=== PATIENT | male | born 1990 | race American Indian/Alaskan Native ===

== ENCOUNTER 2017-12-22 21:05 | Emergency (ER) | payer OTHER ==
[2017-12-22 21:17] VITALS: BP 136/87
== END 2017-12-23 03:40 | disposition left against medical advice (07) ==
LOC: ED 21:05
DX: Z04.1 Encounter for examination and observation following transport accident (principal); Z53.21 Procedure and treatment not carried out due to patient leaving prior to being seen by health care provider; V89.2XXA Person injured in unspecified motor-vehicle accident, traffic, initial encounter; Y93.89 Activity, other specified; Y99.8 Other external cause status; Y92.410 Unspecified street and highway as the place of occurrence of the external cause

== ENCOUNTER 2017-12-29 09:25 | Emergency (ER) | payer SELFPAY ==
[2017-12-29 09:55] VITALS: BP 127/81
[2017-12-29] MEDS ORDERED: TETRACAINE 0.5% OU PRN (11:35)
[2017-12-29] MEDS ORDERED: FUL-GLO OP ONE (11:35)
--- NOTE | 2017-12-29 11:57 | Emergency Department Report ---
[facility] Chief Complaint: Eye Problems Stated Complaint: RIGHT EYE PAIN Time Seen by Provider: 12/29/17 11:35 Duration: 2 Days Side: Right Severity: mild Symptoms: Yes Eye Itching, Yes Eye Redness, No Eye Pain, No Mucous Drainage, No Purulent Drainage, No Blurred Vision, No Preceding URI, No H/O Allergic Rhinitis , No Contact Lens Use, No Trauma, No Fever, No Headache Other History: This is a 27-year-old male nontoxic, well nourished in appearance , no acute signs of distress presents to the ED with c/o of right eye itching and redness x2 days. Patient stated has crusting also this morning. Patient denies any eye trauma. Patient denies any blurry vision or visual changes. Patient denies any headache, nausea, vomiting, chest pain, shortness of rbeathe , fever, chills, numbness or tingling. Patient denies any allergies or PMH. ED Review of Systems ROS: Stated complaint: RIGHT EYE PAIN Other details as noted in HPI Constitutional: denies: chills, fever Eyes: eye pain. denies: eye discharge, vision change ENT: denies: ear pain, throat pain Respiratory: denies: cough, shortness of breath, wheezing Cardiovascular: denies: chest pain, palpitations Endocrine: no symptoms reported Gastrointestinal: denies: abdominal pain, nausea, diarrhea Genitourinary: denies: urgency, dysuria Musculoskeletal: denies: back pain, joint swelling, arthralgia Skin: denies: rash, lesions Neurological: denies: headache, weakness, paresthesias Psychiatric: denies: anxiety, depression Hematological/Lymphatic: denies: easy bleeding, easy bruising ED Past Medical Hx - Past Medical History Hx Asthma: Yes - Surgical History Past Surgical History?: No - Social History Smoking Status: Never Smoker Substance Use Type: None - Medications Home Medications: Home Medications Medication Instructions Recorded Confirmed Last Taken Type Ciprofloxacin 0.3% (Nf) 2 drops OD TID 7 Days #1 drops 12/29/17 Unknown Rx [Ciprofloxacin OPTH] [facility] Exam - Exam General: Vital signs noted. No distress. Alert and acting appropriately. GENERAL: The patient is a well-developed, well-nourished in no apparent distress. Patient is alert and acting appropriately for age. Alert and oriented 3, no apparent distress, normal gait, atraumatic. HEENT: Head is normocephalic and atraumatic. PERRL, Extraocular muscles are intact. Pupils are equal, round, and reactive to light and accommodation. Right eye erythema with eyelid crusting and itching. Nares appeared normal. Mouth is well hydrated and without lesions. Mucous membranes are moist. Posterior pharynx clear of any exudate or lesions. Mouth is well hydrated and without lesions. Tonsils not erythematous or swollen. Uvula midline. Tongue elevated. Mucous members are moist. Posterior pharynx clear, no exudate or lesions. Patent airways. NECK: Supple. No carotid bruits. No lymphadenopathy or thyromegaly.nontender. No meningitic signs are noted. LUNGS: Clear to auscultation. Non labor breathing. No intercostal retractions. Symmetrical with respiration, no wheezing, no rales, or crackles. HEART: Regular rate and rhythm without murmur, rubs or gallops. No reproducible. S1, S2 present, regular rate and rhythm without murmur, no rubs, no gallops. ABDOMEN: Soft, nontender, and nondistended. Positive bowel sounds. No hepatosplenomegaly was noted. No guarding or rebound tenderness, negative epigastric bruit. Negative psoas sign, negative bradshaw sign, negative McBurneys sign EXTREMITIES: Without any cyanosis, clubbing, rash, lesions or edema. Peripheral pulses intact. Capillary refill less than 2 seconds. Full range of motion bilaterally. NEUROLOGIC: Cranial nerves II through XII are grossly intact. Alert and oriented x 3. Normal gait. Symmetrical strength and sensation. Reflexes 2+ throughout. Cerebellar testing normal. GCS score of 15. PSYCHIATRIC: Normal affect with no suicidal or homicidal ideations. Eye Exam: Neither Injection, Neither Chemosis, Neither Abnormal Pupil, Neither EOMI, Neither Eye Foreign Body, Neither Lid Foreign Body, Neither Mucous Discharge, Neither Purulent Discharge, Neither Fluorescein Uptake, Neither Fluorescein Uptake (slit lamp), Neither Cell/Flare (slit lamp), Neither Corneal Edema, Neither Photophobia HEENT: No Nasal Congestion, No Pharyngeal Erythema Remainder of HEENT: Normal Lungs: Yes Clear Lung Sounds, Yes Good Air Exchange, No Wheezes, No Stridor, No Cough, No Nasal Flaring, No Retractions, No Use of Accessory Muscles Exam: Under Marquez lamp, I used fluorescein and tetracaine to examine cornea for corneal abrasion or foreign body, negative for coronary abrasion or foreign body noted upon exam. Tonopen-12 right eye. Visual acuity: right-20/70, left- 20-70 ED Course Vital Signs 12/29/17 09:53 Temperature 98.6 F Pulse Rate 81 Respiratory 20 Rate Blood Pressure 127/81 O2 Sat by Pulse 98 Oximetry - Reevaluation(s) Reevaluation #1: 12/29/17 11:56 Patient is speaking in full sentences with no signs of distress noted. Critical care attestation.: If time is entered above; I have spent that time in minutes in the direct care of this critically ill patient, excluding procedure time. ED Disposition Clinical Impression: Conjunctivitis, right eye Qualifiers: Conjunctivitis type: unspecified Qualified Code(s): H10.9 - Unspecified conjunctivitis Disposition: - TO HOME OR SELFCARE Is pt being admited?: No Does the pt Need Aspirin: No Condition: Stable Instructions: Conjunctivitis (ED), Ciprofloxacin (Into the eye) Additional Instructions: Follow-up with a freelance web designer care doctor in 3-5 days or if symptoms worsen and continue return to emergency room as soon as possible. Prescriptions: Ciprofloxacin 0.3% (Nf) [Ciprofloxacin OPTH] 2 drops OD TID 7 Days #1 drops Referrals: PRIMARY CAREMD [Primary Care Provider] - 3-5 Days ORLANDO BAILEY MD [Staff Physician] - 3-5 Days [facility] [Outside] - 3-5 Days [facility] [Outside] - 3-5 Days Forms: Work/School Release Form(ED)
== END 2017-12-29 12:06 | disposition home or self-care (01) ==
LOC: ED 09:25
DX: H57.11 Ocular pain, right eye (principal); J45.909 Unspecified asthma, uncomplicated
CPT/HCPCS: 99282

== ENCOUNTER 2021-09-21 15:47 | Emergency (ER) | payer SELFPAY ==
--- NOTE | 2021-09-21 16:56 | Emergency Department Report ---
HPI - General Chief Complaint: Psych Time Seen by Provider: 09/21/21 16:21 - HPI HPI: 30-year-old male with history of schizoaffective disorder is brought in by his family due to concern for psychosis. The patient has been diagnosed with bipolar disorder and schizophrenia in the past but has not been taking his medications because he says he does not like taking them. The patient reports experiencing both auditory and visual hallucinations. He says that he has been seeing aliens faces in the corrina and hearing "random voices saying they are going to kill me". He says he feels as if everyone is out to get him. He denies SI or HI. He denies experiencing any physical symptoms or complaints of any kind. Denies any headache, visual changes, neck pain, chest pain, back pain, shortness of breath, abdominal pain, weakness, sensory changes, or any other complaints. He is not vaccinated against COVID-19. ED Past Medical Hx - Past Medical History Previous Medical History?: Yes Hx Asthma: Yes Additional medical history: Schizoaffective disorder - Social History Smoking Status: Never Smoker Substance Use Type: None - Medications Home Medications: Home Medications Medication Instructions Recorded Confirmed Last Taken Type Ciprofloxacin 0.3% (Nf) 2 drops OD TID 7 Days #1 drops 12/29/17 Unknown Rx [Ciprofloxacin OPTH] ARIPiprazole [Abilify] 10 mg PO DAILY 30 Days #30 tab 09/22/[address] [DepaKOTE DR] 250 mg PO BID 30 Days #30 tablet 09/22/21 Unknown Rx ED Review of Systems ROS: Stated complaint: MENTAL HEALTH Other details as noted in HPI Comment: All other systems reviewed and negative Constitutional: denies: chills, fever Eyes: denies: eye pain, vision change ENT: denies: throat pain, congestion Respiratory: denies: cough, shortness of breath Cardiovascular: denies: chest pain, palpitations Gastrointestinal: denies: abdominal pain, nausea, vomiting Genitourinary: denies: dysuria, frequency Musculoskeletal: denies: back pain, arthralgia Skin: denies: rash, lesions Neurological: denies: headache, weakness, numbness Psychiatric: auditory hallucinations, visual hallucinations. denies: homicidal thoughts, suicidal thoughts Physical Exam - Physical Exam Vital Signs: Vital Signs 09/21/21 15:49 Temperature 98.1 F Pulse Rate 100 H Respiratory 18 Rate Blood Pressure 139/90 [Right] O2 Sat by Pulse 100 Oximetry Physical Exam: GENERAL: Well developed and well nourished. No acute distress HEAD: Normocephalic. No obvious signs of trauma. ENT: Somewhat dry mucous membranes. EYES: Extraocular movements are intact. Pupils are equal round and reactive to light bilaterally NECK: Supple. Full ROM is intact. Trachea is midline. LUNGS: Nonlabored breathing. Equal chest rise bilaterally. Clear to auscultation bilaterally. CARDIOVASCULAR: Regular rate and rhythm. No murmurs or rubs. VASCULAR: Cap refill < 2 seconds ABDOMEN: Abdomen is soft and nondistended. There is no significant tenderness, guarding or rebound. SKIN: Skin is warm and dry NEURO: Patient is awake, alert, and oriented. dietary assistant II-XII grossly intact. No focal deficits. Normal motor and sensory exam throughout. Normal speech. MUSCULOSKELETAL: No obvious deformities. No significant tenderness. Normal ROM throughout. BACK/SPINE: No midline tenderness or step-offs of the C/T/L spine. No costovertebral angle tenderness. ED Course Vital Signs 09/21/21 15:49 Temperature 98.1 F Pulse Rate 100 H Respiratory 18 Rate Blood Pressure 139/90 [Right] O2 Sat by Pulse 100 Oximetry ED Medical Decision Making - Lab Data Result diagrams: 09/21/21 17:09 09/21/21 22:43 - Medical Decision Making 30-year-old male with history of schizo affective disorder (bipolar/schizophrenia) off of all psychiatric medications brought in by family due to concern for psychosis. Patient has been experiencing both auditory and visual hallucinations as well as paranoia. These symptoms are preventing him from being able to function. No physical symptoms or complaints. He is afebrile and with normal vital signs with the exception of mildly elevated heart rate of 100. On physical examination he has slightly dry mucous membranes but the remainder of the examination is within normal limits. He has a nonfocal neurologic exam. 1013 order has been signed and initiated. We will send full set of medical clearance labs. Labs have resulted and reveal no significant leukocytosis or anemia. Creatinine is within normal range and there are no significant electrolyte abnormalities with the exception of mild hypokalemia. We will give repletion and repeat potassium level later. The patient is medically cleared for psychiatric evaluation and placement as necessary. Patient seen by the psychiatry/mental health team who recommended discontinuing the 1013 and discharging the patient with outpatient resources. Critical care attestation.: If time is entered above; I have spent that time in minutes in the direct care of this critically ill patient, excluding procedure time. ED Disposition Clinical Impression: Hypokalemia, Encounter for medical screening examination, Encounter for behavioral health screening Disposition: HOME / SELF CARE / HOMELESS Is pt being admited?: No Condition: Stable Instructions: Suicidal Feelings: How to Help Yourself Additional Instructions: Follow-up with outpatient resources that have been provided to the patient. Avoid consumption of alcohol, tobacco, recreational drugs and smoke products. Patient found to have slightly low potassium level, patient is encouraged to eat foods that are high in potassium, such as banana, avocado and potato. Follow-up with a primary care doctor within the next month. Follow-up with a mental health professional within the next week. Please return to the emergency room right away with new pain, worsened pain, migration of pain, projectile vomiting, change in mental status, confusion, inability tolerate liquid feeds, new, worsened or different symptoms not present on the initial emergency room evaluation Professional and Agency Contacts To help [facility] (10/03) [place] Crisis Line: Suicide Prevention Line: Crisis Text Line: Text START to 013281 Emergency: 911 Outpatient COMMUNITY Behavioral Health Resources: [place]: [facility] [address] [place], [place] [address] [facility] [address] [place] [address] Friday thru Friday - 8am - 5pm Call to schedule an assessment for mental health and substance abuse programs [facility] Address: [address] [place] [address] Friday thru Friday- 7am-2pm [facility] Address: [address] [place] [address] Friday thrfriday: 8:30AM-5PM Prescriptions: ARIPiprazole [Abilify] 10 mg PO DAILY 30 Days #30 tab Divalproex [Elma PEREZ] 250 mg PO BID 30 Days #30 tablet Referrals: [facility] [Outside] - 3-5 Days [facility] [Outside] - 3-5 Days
[2021-09-21 17:39] LABS: BUN/Creatinine Ratio 9; Blood Urea Nitrogen 8 mg/dL (9-20); Calcium 9.7 mg/dL (8.4-10.2); Hemolysis Index 12
[2021-09-21 17:52] LABS: Basophils % (Auto) 0.5 % (0.0-1.8); Eosinophils # (Auto) 0.1 K/mm3 (0.0-0.4); Eosinophils % (Auto) 1.7 % (0.0-4.3); Hematocrit 43.5 % (35.5-45.6); Hemoglobin 14.7 gm/dl (11.8-15.2); Lymphocytes % (Auto) 40.1 % (13.4-35.0); Mean Corpuscular HGB Conc 34 % (32-34); Mean Corpuscular Volume 89 fl (84-94); Monocytes # (Auto) 0.4 K/mm3 (0.0-0.8); Monocytes % (Auto) 7.9 % (0.0-7.3); Platelet Count 333 K/mm3 (140-440); Red Cell Distribution Width 13.1 % (13.2-15.2)
[2021-09-21] MEDS ORDERED: POTASSIUM CHLORIDE ER 20 MEQ TAB PO ONE (18:34)
[2021-09-22 00:29] VITALS: BP 104/68
--- NOTE | 2021-09-22 10:19 | Consultation ---
History of Present Illness - Reason for Consult Consult date: 09/22/21 Reason for consult: mental health evaluation - History of Present Psychiatric Illness The patient is a 30 year old male with history of schizophrenia and depression. In my interview with the patient, he is calm, alert and oriented x2, he reports doing well. When asked why he came to the ED he states "my brother brought me here, he felt I should come here." The patient reports noncompliant with p sychotropic medications, states he last took meds a few months ago. The patient denies being depressed but admits to having intermittent non commanding auditory hallucinations. The patient denies any current suicidal/homicidal ideation. PAST PSYCHIATRIC HISTORY Diagnoses: Schizophrenia, Depression Suicide attempts or Self-harm behavior: Denies Prior psychiatric hospitalizations: Yes Substance Abuse history: Patient denies Previous psychiatric medications tried: Risperidone, Depakote Outpatient treatment: Yes but provider name unknown PAST MEDICAL HISTORY: Family Psychiatric History: Not available SOCIAL HISTORY Marital Status: Single Living Arrangements: Lives with father Employment Status: Disabled Access to guns/weapons: None reported Education: college History of Abuse: None reported Legal History: None reported REVIEW OF SYSTEMS Constitutional: Negative for weight loss ENT: Negative for stridor Respiratory: Negative for cough or hemoptysis All other systems reviewed and are negative MENTAL STATUS EXAMINATION General Appearance and Behavior: Age appropriate, good hygiene, wearing appropriate clothes, good eye contact, cooperative polite with questioning. Cooperation: Participating/engaged Psychomotor Behavior: unremarkable and within normal limits Mood:"ok" Affect and affective range: congruent with mood Thought Process: Goal directed Thought Content: reality oriented Speech: Normal volume, Regular rate and rhythm Intellectual Functioning: Average Suicidal Ideation: Denies Homicidal Ideation: Denies Hallucinations: AV-intermittent Impulse Control: Unimpaired Insight and Judgment: Normal insight and judgment Memory: Normal Attention: Divided Orientation: Alert, oriented Assessment and Plan (1) Hx Schizophrenia Current Visit: Yes Status: Acute F20.9 RECOMMENDATIONS Start Abilify 10mg po daily Start Depakote 250mg po BID continue home meds. Risks, benefits and alternatives of medications discussed with the patient, questions answered and consent obtained from patient. PSYCHOTHERAPY: Supportive psychotherapy provided MEDICAL: Per primary team DELIRIUM PRECAUTIONS: Please re-orient patient frequently, keep lights on during the day, and minimize benzodiazepines and opiates as these medications could worsen patient's confusion. AVIATION SAFETY INSPECTOR: Per medical team DISPOSITION:Do not recommend acute inpatient psychiatric hospitalization at this time. Nurses Director will provide patient with psychiatric outpatient resources. FOLLOW-UP: Will sign off. Thank you for the consult. Please contact with any questions and/or concerns. Medications and Allergies Medications and Allergies Allergies Allergy/AdvReac Type Severity Reaction Status Date / Time No Known Allergies Allergy Verified 12/22/17 21:21 Home Medications Medication Instructions Recorded Confirmed Last Taken Type Ciprofloxacin 0.3% (Nf) 2 drops OD TID 7 Days #1 drops 12/29/17 Unknown Rx [Ciprofloxacin OPTH] ARIPiprazole [Abilify] 10 mg PO DAILY 30 Days #30 tab 09/22/[address] [DepaKOTE DR] 250 mg PO BID 30 Days #30 tablet 09/22/21 Unknown Rx Mental Status Exam - Vital signs Last Vital Signs Temp 97.5 F L 09/21/21 20:54 Pulse 84 09/21/21 20:54 Resp 18 09/21/21 20:54 BP 104/68 09/21/21 20:54 Pulse Ox 100 09/21/21 22:00 Results Result Diagrams: 09/21/21 17:09 09/21/21 22:43 Abnormal lab results 09/21/21 09/21/21 09/21/21 Range/Units 17:09 17:09 17:09 RDW 13.1 L (13.2-15.2) % Lymph % (Auto) 40.1 H (13.4-35.0) % [place] % (Auto) 7.9 H (0.0-7.3) % Potassium 3.4 L (3.6-5.0) mmol/L BUN 8 L (9-20) mg/dL Salicylates < 0.3 L (2.8-20.0) mg/dL Acetaminophen (10.0-30.0) ug/mL 09/21/21 Range/Units 17:09 RDW (13.2-15.2) % Lymph % (Auto) (13.4-35.0) % [place] % (Auto) (0.0-7.3) % Potassium (3.6-5.0) mmol/L BUN (9-20) mg/dL Salicylates (2.8-20.0) mg/dL Acetaminophen 5.0 L (10.0-30.0) ug/mL All other labs normal.
--- NOTE | 2021-09-22 11:45 | Event Note ---
Date: 09/22/21 The patient was evaluated in the emergency department for symptoms described in the history of present illness. He/she was evaluated in the context of the global COVID-19 pandemic, which necessitated consideration that the patient might be at risk for infection with the virus that causes COVID-19. Institutional protocols and algorithms that pertain to the evaluation of patients at risk for COVID-19 are in a state of rapid change based on information released by regulatory bodies including the CDC and federal and state organizations. These policies and algorithms were followed during the patient's care in the emergency department. Please note that these policies, procedures and recommendations changed on a rapid basis. Laboratory studies, vital signs, nursing documentation, ER documentation, and psychiatric documentation are reviewed and appreciated. Nursing team reports no acute events this morning or concerns. The patient is awake and ambulating and does not appear to be in any acute distress. He denies physical pain. He denies homicidality and suicidality The patient was deemed medically suitable for psychiatric disposition and placement during his initial ER evaluation. The patient continues to remain medically suitable for psychiatric placement and disposition. The psychiatric team have recommended discontinuation of 1013 and outpatient follow-up. He will therefore be discharged to follow-up. Lab Results 09/21/21 09/21/21 09/21/21 Range/Units 17:09 17:09 17:09 WBC 4.9 (4.5-11.0) K/mm3 RBC 4.90 (3.65-5.03) M/mm3 Hgb 14.7 (11.8-15.2) gm/dl Hct 43.5 (35.5-45.6) % MCV 89 (84-94) fl MCH 30 (28-32) pg MCHC 34 (32-34) % RDW 13.1 L (13.2-15.2) % Plt Count 333 (140-440) K/mm3 Lymph % (Auto) 40.1 H (13.4-35.0) % [place] % (Auto) 7.9 H (0.0-7.3) % Eos % (Auto) 1.7 (0.0-4.3) % Baso % (Auto) 0.5 (0.0-1.8) % Lymph # (Auto) 2.0 (1.2-5.4) K/mm3 [place] # (Auto) 0.4 (0.0-0.8) K/mm3 Eos # (Auto) 0.1 (0.0-0.4) K/mm3 Baso # (Auto) 0.0 (0.0-0.1) K/mm3 Seg Neutrophils % 49.8 (40.0-70.0) % Seg Neutrophils # 2.5 (1.8-7.7) K/mm3 Sodium 143 (137-145) mmol/L Potassium 3.4 L (3.6-5.0) mmol/L Chloride 104.1 (98-107) mmol/L Carbon Dioxide 25 (22-30) mmol/L Anion Gap 17 mmol/L BUN 8 L (9-20) mg/dL Creatinine 0.9 (0.8-1.3) mg/dL Estimated GFR > 60 ml/min BUN/Creatinine Ratio 9 % Glucose 97 (75-100) mg/dL Calcium 9.7 (8.4-10.2) mg/dL Salicylates < 0.3 L (2.8-20.0) mg/dL Acetaminophen (10.0-30.0) ug/mL Plasma/Serum Alcohol (0-0.07) % 09/21/21 09/21/21 09/21/21 Range/Units 17:09 17:09 22:43 WBC (4.5-11.0) K/mm3 RBC (3.65-5.03) M/mm3 Hgb (11.8-15.2) gm/dl Hct (35.5-45.6) % MCV (84-94) fl MCH (28-32) pg MCHC (32-34) % RDW (13.2-15.2) % Plt Count (140-440) K/mm3 Lymph % (Auto) (13.4-35.0) % Milam % (Auto) (0.0-7.3) % Eos % (Auto) (0.0-4.3) % Baso % (Auto) (0.0-1.8) % Lymph # (Auto) (1.2-5.4) K/mm3 Milam # (Auto) (0.0-0.8) K/mm3 Eos # (Auto) (0.0-0.4) K/mm3 Baso # (Auto) (0.0-0.1) K/mm3 Seg Neutrophils % (40.0-70.0) % Seg Neutrophils # (1.8-7.7) K/mm3 Sodium (137-145) mmol/L Potassium 4.3 D (3.6-5.0) mmol/L Chloride (98-107) mmol/L Carbon Dioxide (22-30) mmol/L Anion Gap mmol/L BUN (9-20) mg/dL Creatinine (0.8-1.3) mg/dL Estimated GFR ml/min BUN/Creatinine Ratio % Glucose (75-100) mg/dL Calcium (8.4-10.2) mg/dL Salicylates (2.8-20.0) mg/dL Acetaminophen 5.0 L (10.0-30.0) ug/mL Plasma/Serum Alcohol < 0.01 (0-0.07) % Vital Signs 09/21/21 09/21/21 09/21/21 15:49 20:54 22:00 Temperature 98.1 F 97.5 F L Pulse Rate 100 H 84 Respiratory 18 18 Rate Blood Pressure 139/90 104/68 [Right] O2 Sat by Pulse 100 100 100 Oximetry
== END 2021-09-22 12:40 | disposition home or self-care (01) ==
LOC: ED 15:47
DX: E87.6 Hypokalemia (principal); J45.909 Unspecified asthma, uncomplicated; F20.9 Schizophrenia, unspecified; Z79.899 Other long term (current) drug therapy
CPT/HCPCS: 36415; 80048; 80320; 84132; 85025; 99284; G0480